=== PATIENT | male | born 1950 | race Two or more races ===

== ENCOUNTER 2023-08-13 14:47 | Inpatient (IN) | payer OTHER ==
[~2023-08-13] VITALS: Ht 172.7 cm; Wt 82.8 kg
[2023-08-13 20:21] VITALS: BP_SYST 109; BP_SYST 128; BP_DIAS 68; BP_DIAS 74; PULSE 69; PULSE 74; PULSE 87; RESP 17; RESP 18; RESP 19; TEMP 97.8; TEMP 98.7; O2SAT 97
[2023-08-13] MEDS ORDERED: DEXTROSE (50%) 50ML SYRG IV PRN (20:30)
[2023-08-13] MEDS ORDERED: NITROGLYCERIN 0.4 MG SL TAB SL PRN (20:30)
[2023-08-13] MEDS ORDERED: MORPHINE SULFATE INJ 2 MG/ml SYRG IV PRN ×2 (20:30)
[2023-08-13] MEDS ORDERED: LEVO100T8 PO (20:34)
[2023-08-13 22:00] VITALS: BP 109/68; PULSE 87; RESP 18; TEMP 98.7; O2SAT 95
[2023-08-13] MEDS: PIPERACILLIN-TAZOB 3.375GM 100 ML IV SCH (22:00)
[2023-08-13] MEDS: D5W/SOD CHLO 0.9% 1,000 ML IV SCH (22:22)
[2023-08-13] MEDS: PIPERACILLIN-TAZOB 3.375GM 100 ML IV ONE (22:24)
[2023-08-14] VITALS (7 sets, daily range): BP systolic 109–121; BP diastolic 67–82; PULSE 71–90; RESP 16–18; TEMP 97.6–98.6; O2SAT 93–95
[2023-08-14] MEDS: InsuLIN REG 1unit/0.01ml Soln (100units/ml) SC SCH
[2023-08-14] MEDS: ACCU-CHEK COMFORT CURVE STRIP VI SCH (00:09)
[2023-08-14 06:17] LABS: Basophils # (auto) 0 10 ^3/uL (0-0.2); Basophils % (auto) 0.2 % (0.0-2.0); Eosinophils # (auto) 0.1 10 ^3/uL (0-0.8); Eosinophils % (auto) 0.5 % (0.0-7.0); Hematocrit 37.1 % (41.0-53.0); Hemoglobin 12.3 g/dL (13.5-17.5); Lymphocytes # (auto) 0.8 10 ^3/uL (0.4-5.4); Lymphocytes % (auto) 8.3 % (10.0-50.0); Mean Corpuscular Volume 84.9 fL (80.0-100.0); Monocytes # (auto) 0.8 10 ^3/uL (0-1.3); Monocytes % (auto) 7.8 % (0.0-12.0); Neutrophils # (auto) 8.5 10 ^3/uL (1.6-8.6); Neutrophils % (auto) 83.2 % (37.0-80.0); Red Blood Cells 4.37 10^6/uL (4.5-5.90); Red Cell Distribution Width 13.1 % (11.8-14.3); White Blood Cell 10.2 10^3/uL (4.4-10.8)
[2023-08-14 06:32] LABS: INR 1.04 (0.9-1.15); Prothrombin Time 10.9 sec (9.3-11.8)
[2023-08-14 06:42] LABS: Anion Gap 6 (5-15); Carbon Dioxide 28 mmol/L (20-30); Chloride 104 mmol/L (98-107); Potassium 3.3 mmol/L (3.5-5.1); Sodium 138 mmol/L (136-145)
[2023-08-14 06:44] LABS: Calcium 8.7 mg/dL (8.5-10.1)
[2023-08-14 06:48] LABS: Glucose 112 mg/dL (74-106)
[2023-08-14 06:49] LABS: BUN/Creatinine Ratio 15.3 (10.0-20.0); Blood Urea Nitrogen 13 mg/dL (9-23)
[2023-08-14] MEDS: ENOXAPARIN SOD 40 MG/0.4 ML SYRINGE SC SCH (09:28)
[2023-08-14 17:27] LABS: Urine Bacteria NONE SEEN /hpf (None Seen); Urine Blood Negative /uL (Negative); Urine Clarity Clear (Clear); Urine Color Yellow (Yellow); Urine Protein, UAD 1+ (Negative); Urine Specific Gravity 1.026 (1.001-1.035); Urine WBC 1 /hpf (0 - 3); Urine pH 6.5 (5.0-8.0)
[2023-08-14] MEDS: POTASSIUM CHL 20 Meq TABLET PO ONE (18:49)
[2023-08-15 06:47] LABS: INR 1.05 (0.9-1.15)
[2023-08-15 06:53] LABS: Alanine Aminotransferase 15 U/L (7-40); Albumin 3.9 g/dL (3.2-4.8); Alkaline Phosphatase 153 U/L (46-116); Anion Gap 6 (5-15); Aspartate Aminotransferase 16 U/L (13-40); BUN/Creatinine Ratio 11.6 (10.0-20.0); Blood Urea Nitrogen 10 mg/dL (9-23); Calcium 8.8 mg/dL (8.5-10.1); Carbon Dioxide 27 mmol/L (20-30); Chloride 104 mmol/L (98-107); Glucose 91 mg/dL (74-106); Potassium 3.8 mmol/L (3.5-5.1); Sodium 137 mmol/L (136-145)
[2023-08-15 06:54] LABS: Total Protein 6.4 g/dL (5.7-8.2)
[2023-08-15 08:00] VITALS: BP_SYST 112; BP_SYST 115; BP_DIAS 67; BP_DIAS 78; PULSE 63; PULSE 73; RESP 18; RESP 20; TEMP 98; TEMP 98.4; O2SAT 96; O2SAT 97
[2023-08-15 12:05] VITALS: BP 112/69; PULSE 67; RESP 20; TEMP 97.9; O2SAT 96
[2023-08-15 16:05] VITALS: BP 120/70; PULSE 74; RESP 18; TEMP 98; O2SAT 97
[2023-08-15] MEDS: LEVOTHYROXINE SODIUM 100 MCG TAB PO ONE (18:01)
[2023-08-15 20:00] VITALS: BP 120/68; PULSE 64; PULSE 76; RESP 16; RESP 17; TEMP 97.1; O2SAT 96
[2023-08-15] MEDS: ACETAMINOPHEN 325 MG TAB PO PRN (20:25)
[2023-08-15 21:21] VITALS: BP 111/68; PULSE 70; RESP 18; TEMP 98.2; O2SAT 92
[2023-08-16 05:00] VITALS: BP 103/68; PULSE 66; RESP 18; TEMP 97.7; O2SAT 96
[2023-08-16] MEDS: LEVOTHYROXINE SODIUM 100 MCG TAB PO SCH (06:10)
[2023-08-16 06:20] LABS: Basophils # (auto) 0.1 10 ^3/uL (0-0.2); Basophils % (auto) 0.8 % (0.0-2.0); Eosinophils # (auto) 0.2 10 ^3/uL (0-0.8); Hematocrit 39.2 % (41.0-53.0); Hemoglobin 12.9 g/dL (13.5-17.5); Lymphocytes # (auto) 0.9 10 ^3/uL (0.4-5.4); Lymphocytes % (auto) 12.9 % (10.0-50.0); Mean Corpuscular Hemoglobin 28.1 pg (28.0-32.0); Mean Corpuscular Hgb Conc. 32.9 g/dL (32.0-36.0); Mean Corpuscular Volume 85.4 fL (80.0-100.0); Monocytes # (auto) 0.6 10 ^3/uL (0-1.3); Monocytes % (auto) 8.9 % (0.0-12.0); Neutrophils # (auto) 5.3 10 ^3/uL (1.6-8.6); Neutrophils % (auto) 74.4 % (37.0-80.0); Red Blood Cells 4.59 10^6/uL (4.5-5.90); Red Cell Distribution Width 12.8 % (11.8-14.3); White Blood Cell 7.1 10^3/uL (4.4-10.8)
[2023-08-16 06:47] LABS: Alanine Aminotransferase 16 U/L (7-40); Alkaline Phosphatase 164 U/L (46-116); Anion Gap 6 (5-15); Aspartate Aminotransferase 15 U/L (13-40); BUN/Creatinine Ratio 10.6 (10.0-20.0); Bilirubin, Total 0.7 mg/dL (0.2-1.0); Blood Urea Nitrogen 9 mg/dL (9-23); Calcium 9.2 mg/dL (8.5-10.1); Carbon Dioxide 28 mmol/L (20-30); Chloride 104 mmol/L (98-107); Glucose 91 mg/dL (74-106); Sodium 138 mmol/L (136-145); Total Protein 6.6 g/dL (5.7-8.2)
[2023-08-16 08:00] VITALS: BP 120/68; PULSE 76; RESP 16; RESP 18; TEMP 97.1; O2SAT 96
[2023-08-16 09:00] VITALS: BP 118/73; PULSE 72; RESP 18; TEMP 98.4; O2SAT 96
[2023-08-16 13:00] VITALS: BP 108/66; PULSE 72; RESP 18; TEMP 98.7; O2SAT 97
[2023-08-16] MEDS ORDERED: SUGAMMADEX 200mg/2ml Vial (100MG/ML) IV ONE ×2 (14:07→16:56)
[2023-08-16] MEDS ORDERED: ROCURONIUM 10MG/ML 10ML VIAL IV ONE ×2 (14:07→14:28)
[2023-08-16] MEDS ORDERED: LIDOCAINE 2% (LOCAL ANESTH.) PF 5ml SDV ONE ×2 (14:07→14:28)
[2023-08-16] MEDS ORDERED: ONDANSETRON HCL 4 MG/2 ML VIAL ONE ×2 (14:07→14:28)
[2023-08-16] MEDS ORDERED: GLYCOPYRROLATE 0.2 MG/ML 1ML VIAL ONE ×2 (14:07→14:28)
[2023-08-16] MEDS ORDERED: PROPOFOL 10 MG/ML 20 ML IV ONE (14:07)
[2023-08-16] MEDS ORDERED: DexAMETHasone SOD PHOS 10MG/1ML VIAL INJ ONE ×2 (14:07→14:28)
[2023-08-16] MEDS ORDERED: KETOROLAC TROMETH 30 MG/ML 1ML VIAL ONE ×2 (14:07→14:28)
[2023-08-16] MEDS ORDERED: KETAMINE 50mg/ML 1ml syringe ONE (14:07)
[2023-08-16] MEDS: BUPIVACAINE W/ EPINEPH 0.5% INJ 50ML MDV IJ ONE (14:13)
[2023-08-16] MEDS: ceFAZolin 2 GM/D5W50ml 50 ML IV ONE (14:15)
[2023-08-16] MEDS ORDERED: HYDROmorphone HCL 2 MG/ML VL/or syr ONE (14:28)
[2023-08-16] MEDS ORDERED: fentaNYL CITRATE 100 MCG/2 ML VL ONE ×2 (14:28→15:15)
[2023-08-16] MEDS ORDERED: MIDAZOLAM HCL 2MG/2ML 2ml VIAL (1mg/ml) ONE (14:28)
[2023-08-16] MEDS ORDERED: ePHEDrine SULFATE 50 MG/ML AMP ONE (14:28)
[2023-08-16] MEDS ORDERED: LABETALOL HCL 5 MG/ML ML 20ML VIAL IV ONE (15:37)
[2023-08-16] MEDS ORDERED: TRANEXAMIC ACID 20 ML ONE (16:18)
[2023-08-16] MEDS: metroNIDAZOLE 500MG/100ML 100 ML IV ONE (16:50)
[2023-08-16 17:12] VITALS: O2SAT 96
[2023-08-16] MEDS ORDERED: HYDROmorphone HCL 2 MG/ML VL/or syr IV PRN (17:30)
[2023-08-16] MEDS ORDERED: ONDANSETRON HCL 4 MG/2 ML VIAL IV PRN (17:30)
[2023-08-16 18:29] LABS: Basophils # (auto) 0 10 ^3/uL (0-0.2); Basophils % (auto) 0.3 % (0.0-2.0); Eosinophils # (auto) 0 10 ^3/uL (0-0.8); Eosinophils % (auto) 0.3 % (0.0-7.0); Hemoglobin 12.1 g/dL (13.5-17.5); Lymphocytes # (auto) 0.7 10 ^3/uL (0.4-5.4); Lymphocytes % (auto) 6.1 % (10.0-50.0); Mean Corpuscular Hemoglobin 27.8 pg (28.0-32.0); Mean Corpuscular Hgb Conc. 32.6 g/dL (32.0-36.0); Mean Corpuscular Volume 85.1 fL (80.0-100.0); Monocytes # (auto) 0.3 10 ^3/uL (0-1.3); Monocytes % (auto) 2.7 % (0.0-12.0); Neutrophils # (auto) 10.2 10 ^3/uL (1.6-8.6); Neutrophils % (auto) 90.6 % (37.0-80.0); Red Blood Cells 4.35 10^6/uL (4.5-5.90); White Blood Cell 11.3 10^3/uL (4.4-10.8)
[2023-08-16 18:32] LABS: Alanine Aminotransferase 38 U/L (7-40); Albumin 3.7 g/dL (3.2-4.8); Alkaline Phosphatase 153 U/L (46-116); Anion Gap 5 (5-15); Aspartate Aminotransferase 62 U/L (13-40); BUN/Creatinine Ratio 12.5 (10.0-20.0); Bilirubin, Total 0.6 mg/dL (0.2-1.0); Blood Urea Nitrogen 11 mg/dL (9-23); Calcium 8.6 mg/dL (8.5-10.1); Carbon Dioxide 27 mmol/L (20-30); Chloride 104 mmol/L (98-107); Glucose 147 mg/dL (74-106); Potassium 4.1 mmol/L (3.5-5.1); Sodium 136 mmol/L (136-145); Total Protein 6.1 g/dL (5.7-8.2)
[2023-08-16 18:48] LABS: INR 1.06 (0.9-1.15); Prothrombin Time 11.1 sec (9.3-11.8)
[2023-08-16 21:00] VITALS: BP 96/50; PULSE 71; RESP 18; TEMP 97.7; O2SAT 91
[2023-08-16] MEDS: ONDANSETRON HCL 4 MG/2 ML VIAL IV PRN (21:14)
[2023-08-17] VITALS (8 sets, daily range): BP systolic 90–110; BP diastolic 50–68; PULSE 57–80; RESP 14–21; TEMP 97.5–98.6; O2SAT 91–96
[2023-08-17 05:46] LABS: Basophils # (auto) 0 10 ^3/uL (0-0.2); Basophils % (auto) 0.1 % (0.0-2.0); Eosinophils # (auto) 0 10 ^3/uL (0-0.8); Hematocrit 35.3 % (41.0-53.0); Hemoglobin 11.3 g/dL (13.5-17.5); Lymphocytes # (auto) 0.6 10 ^3/uL (0.4-5.4); Lymphocytes % (auto) 6.3 % (10.0-50.0); Mean Corpuscular Hemoglobin 27.7 pg (28.0-32.0); Mean Corpuscular Hgb Conc. 32.1 g/dL (32.0-36.0); Mean Corpuscular Volume 86.1 fL (80.0-100.0); Monocytes # (auto) 0.5 10 ^3/uL (0-1.3); Monocytes % (auto) 5.1 % (0.0-12.0); Neutrophils % (auto) 88.5 % (37.0-80.0); Red Cell Distribution Width 12.9 % (11.8-14.3); White Blood Cell 10.1 10^3/uL (4.4-10.8)
[2023-08-17 06:09] LABS: Alanine Aminotransferase 37 U/L (7-40); Albumin 3.6 g/dL (3.2-4.8); Alkaline Phosphatase 130 U/L (46-116); Anion Gap 7 (5-15); Aspartate Aminotransferase 53 U/L (13-40); BUN/Creatinine Ratio 13.5 (10.0-20.0); Blood Urea Nitrogen 12 mg/dL (9-23); Calcium 8.5 mg/dL (8.5-10.1); Carbon Dioxide 25 mmol/L (20-30); Chloride 104 mmol/L (98-107); Glucose 134 mg/dL (74-106); Potassium 4.2 mmol/L (3.5-5.1); Sodium 136 mmol/L (136-145)
[2023-08-17 06:10] LABS: Bilirubin, Total 0.6 mg/dL (0.2-1.0); Total Protein 5.8 g/dL (5.7-8.2)
[2023-08-18 01:00] VITALS: BP 113/67; PULSE 74; RESP 16; TEMP 98.6; O2SAT 91
[2023-08-18 05:00] VITALS: BP 110/71; PULSE 80; RESP 16; TEMP 98.3; O2SAT 92
[2023-08-18 07:03] LABS: Basophils # (auto) 0 10 ^3/uL (0-0.2); Basophils % (auto) 0.6 % (0.0-2.0); Eosinophils # (auto) 0 10 ^3/uL (0-0.8); Eosinophils % (auto) 0.6 % (0.0-7.0); Hematocrit 35.6 % (41.0-53.0); Hemoglobin 11.7 g/dL (13.5-17.5); Lymphocytes % (auto) 12.2 % (10.0-50.0); Mean Corpuscular Hemoglobin 28.1 pg (28.0-32.0); Mean Corpuscular Volume 85.2 fL (80.0-100.0); Monocytes # (auto) 0.8 10 ^3/uL (0-1.3); Monocytes % (auto) 10.1 % (0.0-12.0); Neutrophils # (auto) 6.3 10 ^3/uL (1.6-8.6); Neutrophils % (auto) 76.5 % (37.0-80.0); Red Blood Cells 4.18 10^6/uL (4.5-5.90); White Blood Cell 8.2 10^3/uL (4.4-10.8)
[2023-08-18 08:00] VITALS: PULSE 77; RESP 18; O2SAT 95
[2023-08-18 09:06] VITALS: BP 119/77; PULSE 76; RESP 17; TEMP 98.2; O2SAT 92
[2023-08-18] MEDS ORDERED: ACET-1304 PO (10:43)
[2023-08-18] MEDS ORDERED: AMOX500T86 PO (10:43)
[2023-08-18] MEDS ORDERED: HYDR-4902 PO (10:43)
[2023-08-18 13:20] VITALS: BP 111/68; PULSE 77; RESP 17; TEMP 98.1; O2SAT 92
[2023-08-18 13:23] VITALS: BP 111/68; PULSE 77; RESP 17; TEMP 98.1; O2SAT 92
== END 2023-08-18 15:30 | disposition home or self-care (01) | DRG 418 ==
LOC: WEST WING 19:49 → TELE-WESTW 08-17 09:00
PROVIDERS: ADMIT Hospitalist; ATTEND Hospitalist
PROC: 0DNU4ZZ Release Omentum, Percutaneous Endoscopic Approach (ICD-10-PCS; 2023-08-16)
PROC: 0FT44ZZ Resection of Gallbladder, Percutaneous Endoscopic Approach (ICD-10-PCS; principal; 2023-08-16 14:44)
DX: K80.00 Calculus of gallbladder with acute cholecystitis without obstruction (principal); I31.39 Other pericardial effusion (noninflammatory); K82.1 Hydrops of gallbladder; Q44.1 Other congenital malformations of gallbladder; E03.9 Hypothyroidism, unspecified; K82.A1 Gangrene of gallbladder in cholecystitis; K66.0 Peritoneal adhesions (postprocedural) (postinfection); Z90.49 Acquired absence of other specified parts of digestive tract
CPT/HCPCS: 31299; 47564; 69450; S2900; 36415; 71045; 74181; 80048; 80053; 81001; 82962; 85025; 85610; 86850; 86900; 86901; 86920; 87040; 93306; 97163; G0378; J1100; J1815; J1885; J2001; J2250; J2405; J2543; J2704; J3490